=== PATIENT | female | born 1990 | race Two or more races ===

== ENCOUNTER 2019-05-09 07:45 | Inpatient (IN) | payer MEDICAID ==
[2019-05-12] MEDS ORDERED: GLYCOPYRROLATE 1 MG/5 ML VIAL ONE (05:00)
[2019-05-12] MEDS ORDERED: PHENYLEPHRINE HCL INJ/PF 10 MG/1 ML SDV ONE (05:00)
[2019-05-12] MEDS ORDERED: PROPOFOL INJ 200 MG/20 ML VIAL IV ONE ×2 (07:14→09:04)
[2019-05-12] MEDS ORDERED: OXYTOCIN 10 UNIT/ML VIAL ONE ×2 (07:14→09:04)
[2019-05-12] MEDS ORDERED: DIPHENHYDRAMINE HCL 50 MG/ML VIAL ONE (07:15)
[2019-05-12] MEDS ORDERED: ONDANSETRON HCL INJ/PF 4 MG/2 ML SDV ONE (07:15)
[2019-05-12] MEDS ORDERED: MIDAZOLAM 2 MG/2 ML INJ ONE ×2 (07:15→09:04)
[2019-05-12] MEDS ORDERED: OXYTOCIN/NORMAL SALINE 20 UNIT/1,000 ML RTUINJ ONE ×2 (07:15→09:05)
[2019-05-12] MEDS ORDERED: ACETAMINOPHEN 0 MG/0 ML RTUPB IV ONE (07:15)
[2019-05-12] MEDS ORDERED: FENTANYL CITRATE INJ/PF 100 MCG/2 ML AMPUL ONE (07:15)
[2019-05-12] MEDS ORDERED: LIDOCAINE 2% INJ-PF (20 MG/ML) 10 ML AMPUL ONE ×2 (07:16)
[2019-05-12] MEDS ORDERED: RINGERS SOLUTION,LACTATED 1,000 ML IV PRN ×2 (07:25→10:25)
[2019-05-12] MEDS ORDERED: CEFAZOLIN SODIUM 2 GM in DEXTROSE 5%-WATER 100 ML IV PRN (07:27)
[2019-05-12 08:00] LABS: ABSOLUTE EOSINOPHILS # (AUTO) 0.1 10^3/uL (0.0-0.6); ABSOLUTE LYMPHOCYTES (AUTO) 2.3 10^3/uL (0.5-4.7); ABSOLUTE MONOCYTES (AUTO) 0.4 10^3/uL (0.1-1.4); ABSOLUTE NEUT (AUTO) 3.3 10^3/uL (1.7-8.2); BASOPHILS % (AUTO) 0.7 % (0-2); EOSINOPHILS % (AUTO) 1.1 % (0-6); HEMATOCRIT 29.5 % (36.0-47.0); HEMOGLOBIN 10.4 g/dL (12.0-15.5); LYMPHOCYTES % (AUTO) 37.2 % (13-45); MEAN CORPUSCULAR HEMOGLOBIN 29.9 pg (27.0-33.4); MEAN CORPUSCULAR HGB CONC 35.2 g/dL (32.0-36.0); MEAN CORPUSCULAR VOLUME 85 fl (80-97); MONOCYTES % (AUTO) 7.1 % (3-13); PLATELET COUNT 241 10^3/uL (150-450); RED BLOOD COUNT 3.47 10^6/uL (3.72-5.28); RED CELL DISTRIBUTION WIDTH 13.6 % (11.5-14.0); SEGMENTED NEUTROPHILS % (AUTO) 53.9 % (42-78); TOTAL CELLS COUNTED % (AUTO) 100 %; WHITE BLOOD COUNT 6.1 10^3/uL (4.0-10.5)
[2019-05-12] MEDS ORDERED: RINGERS SOLUTION,LACTATED 1,500 ML IV ONE (08:00)
[2019-05-12] MEDS ORDERED: ACETAMINOPHEN 1,000 MG/100 ML RTUPB IV ONE (09:05)
[2019-05-12] MEDS ORDERED: MORPHINE SULFATE 10 MG/ML INJ IV PRN (09:57)
[2019-05-12] MEDS ORDERED: DIPHENHYDRAMINE HCL 50 MG/ML VIAL IV PRN (09:57)
[2019-05-12] MEDS ORDERED: FENTANYL CITRATE INJ/PF 100 MCG/2 ML AMPUL IV PRN ×3 (09:57)
[2019-05-12] MEDS ORDERED: MEPERIDINE HCL/PF INJ 25 MG/1 ML DISP.SYRIN IV PRN (09:57)
[2019-05-12] MEDS ORDERED: PROMETHAZINE HCL INJ 25 MG/1 ML VIAL IV PRN ×2 (09:57→10:25)
[2019-05-12] MEDS ORDERED: ONDANSETRON HCL INJ/PF 4 MG/2 ML SDV IV PRN (09:57)
[2019-05-12] MEDS ORDERED: OXYCODONE-ACETAMINOPHEN 5-325 MG TABLET PO PRN ×3 (09:57→10:25)
[2019-05-12] MEDS ORDERED: HYDROMORPHONE HCL INJ/PF 2 MG/ML AMPULE IV PRN (10:25)
[2019-05-12] MEDS ORDERED: DIPH/PERTUSS(ACELL)/TETANUS VAC/PF 0.5 ML SYR (>=10YO) IM PRN (10:25)
[2019-05-12] MEDS ORDERED: ACETAMINOPHEN 325 MG TABLET PO PRN (10:25)
[2019-05-12] MEDS ORDERED: OXYTOCIN/NORMAL SALINE 20 UNIT/1,000 ML RTUINJ IV PRN (10:25)
[2019-05-12] MEDS ORDERED: SIMETHICONE 80 MG TAB.CHEW PO PRN (10:25)
[2019-05-12] MEDS ORDERED: MEASLES,MUMPS&RUBELLA VACC/PF 0.5 ML VIAL SUBCUT PRN (10:25)
[2019-05-12] MEDS ORDERED: ACETAMINOPHEN IV PRN (10:25)
--- NOTE | 2019-05-12 10:28 | PDOC DELIVERY SUMMARY ---
Delivery Summary - Maternal Hx : III Hx # Term Pregnancies: 0 Hx # Pregnancies: 1 Hx Total # of Abortions (Sponateous & Elective): 1 LANDEN: 05/23/19 Gestational Age: 38+4 Ruptured Membranes: AROM Time of Rupture: 09:52 Fluids: Clear - Delivery Presentation: Vertex Heart Rate Monitoring: Done Pre-Operatively Support Person Present: Yes Location: OR : Scheduled, Repeat Placenta: Within Normal Limits Delivery of Placenta Date: 05/12/19 Delivery of Placenta Time: 09:53 - Medications Type of Anesthesia:: Spinal - Infant Assess and Care Baby 1 Female Delivery of Infant Date: 05/12/19 Delivery of Time: 09:52 at 1 minute: 8 at 5 minutes: 9 Preprinted Number On Band: [id number] Infant Skin to Skin: No Mode of Transport: Carried Infant Delivery Weight: 2,600 Infant Delivery Length: 19.5 in - Delivery Personnel [employer] Worker: JADA STERN RN: JOSÉ LUIS GREENFIELD MD: JOSE BAIRD
--- NOTE | 2019-05-12 10:31 | Operative Report ---
Operative Report DATE OF SURGERY: 05/12/19 PREOPERATIVE DIAGNOSIS: Patient desires repeat to prevent risk of veronique rine rupture POSTOPERATIVE DIAGNOSIS: Same OPERATION: Repeat via low transverse uterine incision SURGEON: JOSE BAIRD ANESTHESIA: Spinal TISSUE REMOVED OR ALTERED: Placenta COMPLICATIONS: None ESTIMATED BLOOD LOSS: 250 cc INTRAOPERATIVE FINDINGS: Viable infant, normal uterus tubes ovaries PROCEDURE: Patient was taken to the OR and placed in supine position after her spinal anesthesia. She is prepared and draped in sterile fashion. Carrero was placed for drainage of the bladder. Low transverse incision was made and carried down the level of the fascia. The fascial incision was made with knife and extended bilaterally with curved Gonzalez scissors. The fascia was off the rectus muscles using sharp and blunt dissection. The rectus muscles are in the midline. The peritoneum was entered without incident. Bladder blade was placed in uterine segment was identified. A low transverse incision was made creating a bladder flap. Bladder blade was placed low transverse uterine incision was made with the knife and extended with fingertips. The baby was delivered with some fundal pressure. Mouth and nose were suctioned free. The c ord is doubly clamped and cut. Baby is passed off to the center line cutter operator in attendance. The placenta was manually extracted with trailing membranes. The uterus was externalized wrapped in a moist lap sponge. Uterine contents wiped free. Uterus was closed with a running locking layer of 0 chromic suture using the second layer to imbricate the first completing a double layer closure of the uterus. The serosa was closed with a running 2-0 chromic stitch. The pelvis was irrigated and suctioned free of fluid the uterus was replaced in the abdomen. The abdominal wall peritoneum was closed with running 2-0 chromic stitch. Fascia was closed with a running 0 Vicryl in 2 segments. Elías's layer was brought together with 0 plain gut stitch and the skin was closed with running subcuticular 4-0 undyed Vicryl stitch. The wound was dressed mother and baby did well.
[2019-05-12] MEDS: FENTANYL CITRATE INJ/PF 100 MCG/2 ML AMPUL ONE ×2 (10:45→10:50)
[2019-05-12] MEDS ORDERED: KETOROLAC TROMETHAMINE INJ/PF 30 MG/1 ML SDV IV SCH (14:00)
[2019-05-12] MEDS ORDERED: KETOROLAC TROMETHAMINE 60 MG/2 ML SDV ONE (14:20)
[2019-05-12] MEDS: OXYCODONE-ACETAMINOPHEN 5-325 MG TABLET PO PRN ×2 (14:36→22:15)
[2019-05-12] MEDS: DOCUSATE SODIUM 100 MG CAPSULE PO SCH (17:52)
[2019-05-12] MEDS: KETOROLAC TROMETHAMINE INJ/PF 30 MG/1 ML SDV IV SCH (17:53)
[2019-05-12] MEDS ORDERED: INFLUENZA QUAD (6MOS+) 2019-20 VAC 0.5 ML SYR IM ONE (18:24)
[2019-05-13] MEDS: KETOROLAC TROMETHAMINE INJ/PF 30 MG/1 ML SDV IV SCH ×2 (02:58→09:39)
[2019-05-13] MEDS: OXYCODONE-ACETAMINOPHEN 5-325 MG TABLET PO PRN ×2 (02:59→15:16)
[2019-05-13 08:11] LABS: HEMATOCRIT 30.4 % (36.0-47.0); HEMOGLOBIN 10.5 g/dL (12.0-15.5); MEAN CORPUSCULAR HEMOGLOBIN 29.6 pg (27.0-33.4); MEAN CORPUSCULAR HGB CONC 34.6 g/dL (32.0-36.0); MEAN CORPUSCULAR VOLUME 86 fl (80-97); PLATELET COUNT 226 10^3/uL (150-450); RED BLOOD COUNT 3.55 10^6/uL (3.72-5.28); RED CELL DISTRIBUTION WIDTH 13.7 % (11.5-14.0); WHITE BLOOD COUNT 9.8 10^3/uL (4.0-10.5)
[2019-05-13] MEDS: DOCUSATE SODIUM 100 MG CAPSULE PO SCH ×2 (09:38→18:54)
[2019-05-13] MEDS: PRENATAL VITAMIN W DHA CAPSULE PO SCH (09:39)
--- NOTE | 2019-05-13 10:36 | PDOC PROGRESS REPORT ---
Subjective-OB Progress Note for:: 05/13/19 Subjective: Pt doing well. at bedside translating. She reports light bleeding, reg diet, has not passed flatus yet. Ambulatory has been up to void. Physical Exam (OB) Vital Signs: Temp Pulse Resp BP Pulse Ox 98.2 F 79 18 95/54 L 100 05/13/19 07:13 05/13/19 07:13 05/13/19 07:13 05/13/19 07:13 05/13/19 07:13 Intake & Output 05/12/19 05/13/19 05/14/19 06:59 06:59 06:59 Intake Total 2050 Output Total 2575 Balance -525 Weight 72.575 kg - PIH/Pre-Eclampsia Clonus: Negative Headache: Absent Epigastric Pain: No Visual Changes: No - Dressing Removed: No - opsite clean, dry and intact Incision: Dressing Closure Type: Sutures - Lochia Lochia Amount: Small 10-25 ml Lochia Color: Rubra/Red - Abdomen Description: Soft, Round Hernia Present: No Fundal Description: Firm, Midline Fundal Height: u/u - u/2 Objective-Diagnostic Laboratory: 05/13/19 07:30 05/13/19 07:30 WBC 9.8 RBC 3.55 L Hgb 10.5 L Hct 30.4 L MCV 86 MCH 29.6 MCHC 34.6 RDW 13.7 Plt Count 226 Assessment and Plan(PN) - Assessment and Plan (1) S/P repeat low transverse Is this a current diagnosis for this admission?: Yes - Time Spent with Patient Time with patient: Less than 15 minutes Medications reviewed and adjusted accordingly: Yes - Disposition Anticipated Discharge: Home Within: within 24 hours
[2019-05-13] MEDS: IBUPROFEN 800 MG TABLET PO SCH ×3 (15:02→23:07)
[2019-05-14] MEDS: OXYCODONE-ACETAMINOPHEN 5-325 MG TABLET PO PRN ×2 (02:03→09:15)
[2019-05-14] MEDS: IBUPROFEN 800 MG TABLET PO SCH (06:16)
--- NOTE | 2019-05-14 08:11 | PDOC DISCHARGE SUMMARY ---
Impression - Admit/DC Date/PCP Admission Date/Primary Care Provider: 05/12/19 06:54 OSMAN GARCIA MD Discharge Date: 05/14/19 - Discharge Diagnosis (1) S/P repeat low transverse Is this a current diagnosis for this admission?: Yes - Additional Information Resuscitation Status: Full Code Discharge Diet: Regular Discharge Activity: Balance Activity w/Rest, No Lifting Over 10 Pounds, No Lifting/Push/Pulling, Pelvic Rest, No tub bath Referrals: [facility] [Provider Group] Prescriptions: Oxycodone HCl/Acetaminophen [Percocet 5-325 mg Tablet] 1 tab PO Q4HP PRN #30 tablet PRN Reason: Ibuprofen [Motrin 800 mg Tablet] 800 mg PO Q8HP PRN #60 tablet PRN Reason: Home Medications: Omeprazole 40 mg PO DAILY #30 capsule. 05/06/18 No122/Iron/Folic Acid [ Multi Tablet] 1 tab PO DAILY 05/12/19 Ibuprofen [Motrin 800 mg Tablet] 800 mg PO Q8HP PRN #60 tablet 05/14/19 Oxycodone HCl/Acetaminophen [Percocet 5-325 mg Tablet] 1 tab PO Q4HP PRN #30 tablet 05/14/19 Results Laboratory Results: WBC 9.8 10^3/uL (4.0-10.5) 05/13/19 07:30 RBC 3.55 10^6/uL (3.72-5.28) L 05/13/19 07:30 Hgb 10.5 g/dL (12.0-15.5) L 05/13/19 07:30 Hct 30.4 % (36.0-47.0) L 05/13/19 07:30 MCV 86 fl (80-97) 05/13/19 07:30 MCH 29.6 pg (27.0-33.4) 05/13/19 07:30 MCHC 34.6 g/dL (32.0-36.0) 05/13/19 07:30 RDW 13.7 % (11.5-14.0) 05/13/19 07:30 Plt Count 226 10^3/uL (150-450) 05/13/19 07:30 Lymph % (Auto) 37.2 % (13-45) 05/12/19 07:48 [place] % (Auto) 7.1 % (3-13) 05/12/19 07:48 Eos % (Auto) 1.1 % (0-6) 05/12/19 07:48 Baso % (Auto) 0.7 % (0-2) 05/12/19 07:48 Absolute Neuts (auto) 3.3 10^3/uL (1.7-8.2) 05/12/19 07:48 Absolute Lymphs (auto) 2.3 10^3/uL (0.5-4.7) 05/12/19 07:48 Absolute Monos (auto) 0.4 10^3/uL (0.1-1.4) 05/12/19 07:48 Absolute Eos (auto) 0.1 10^3/uL (0.0-0.6) 05/12/19 07:48 Absolute Basos (auto) 0.0 10^3/uL (0.0-0.2) 05/12/19 07:48 Seg Neutrophils % 53.9 % (42-78) 05/12/19 07:48 Blood Type A POSITIVE 05/12/19 07:48 Antibody Screen NEGATIVE 05/12/19 07:48
[2019-05-14] MEDS: DOCUSATE SODIUM 100 MG CAPSULE PO SCH (09:15)
[2019-05-14] MEDS: PRENATAL VITAMIN W DHA CAPSULE PO SCH (09:15)
[2019-05-14 12:39] VITALS: BP 98/54
== END 2019-05-14 14:50 | disposition home or self-care (01) | DRG 788 ==
LOC: 2N 05-12 06:54
PROVIDERS: ADMIT Obstetrics & Gynecology; ATTEND Obstetrics & Gynecology
PROC: 10D00Z1 Extraction of Products of Conception, Low, Open Approach (ICD-10-PCS; principal; 2019-05-12 09:45)
DX: O34.211 Maternal care for low transverse scar from previous cesarean delivery (principal); Z3A.38 38 weeks gestation of pregnancy; Z37.0 Single live birth
CPT/HCPCS: 1961; 36415; 85025; 85027; 86850; 86900; 86901; 94799; J0131; J0690; J1170; J1200; J1885; J2250; J2370; J2405; J2590; J2704; J3010; J3490; J7060; J7120

== ENCOUNTER 2019-05-09 08:59 | Outpatient (CLI) | payer MEDICAID ==
[2019-05-09 10:03] LABS: APPEARANCE,URINE CLEAR; BILIRUBIN,URINE NEGATIVE (NEGATIVE); COLOR,URINE STRAW; GLUCOSE, URINE NEGATIVE (NEGATIVE); KETONES,URINE NEGATIVE (NEGATIVE); LEUKOCYTE ESTERASE,URINE SMALL (NEGATIVE); NITRITE,URINE NEGATIVE (NEGATIVE); PROTEIN,URINE NEGATIVE (NEGATIVE); URINE SPECIFIC GRAVITY 1.003; UROBILINOGEN,URINE NEGATIVE mg/dL (<2.0)
[2019-05-09 10:28] LABS: URINE AMPHETAMINES SCREEN NEGATIVE; URINE BARBITURATES SCREEN NEGATIVE; URINE BENZODIAZEPINES SCREEN NEGATIVE; URINE COCAINE SCREEN NEGATIVE; URINE MARIJUANA (THC) SCREEN NEGATIVE; URINE METHADONE SCREEN NEGATIVE; URINE PHENCYCLIDINE SCREEN NEGATIVE
--- NOTE | 2019-05-09 13:03 | Non Stress Test Report ---
Non Stress Test Datetime Report Generated by CPN: 05/09/2019 13:02 DEMOGRAPHIC EGA NST: 38.4 INDICATION Indication for Study (NST) Other: false labor URINE RESULTS Urine Glucose - NST: Negative MONITORING Monitor Explained: Monitor Explained; Test Explained; Patient Verbalized Understanding Time on Monitor: 05/09/2019 09:14 Time off Monitor: 05/09/2019 12:50 NST Duration: 216 NST INTERVENTIONS NST Interventions: PO Hydration; IV Fluids; Reposition Patient Physician Notified NST: Dr. Cota BABY A: [id number] BABY A Movement : Present Contraction Frequency : irregular FHR Baseline : 140 Accelerations : 15X15 Decelerations : None Variability : Moderate 6-25bpm NST Review: Meets Criteria for Reactive NST NST Review and Verified By : Hallie Cummins RNC NST Results: Reactive NST REPORT Report Trigger: Send Report
== END 2019-05-09 12:55 | disposition home or self-care (01) ==
LOC: LC 08:59
PROVIDERS: ATTEND Obstetrics & Gynecology
PROC: 4A1HXCZ Monitoring of Products of Conception, Cardiac Rate, External Approach (ICD-10-PCS; principal; 2019-05-09)
DX: O47.1 False labor at or after 37 completed weeks of gestation (principal); Z3A.38 38 weeks gestation of pregnancy
CPT/HCPCS: 59025; 80307; 81005